=== PATIENT | male | born 1955 | race African-American/Black ===

== ENCOUNTER 2020-09-29 13:53 | Emergency (ER) | payer MEDICAID, MEDICARE ==
[~2020-09-29] VITALS: Ht 172.7 cm; Wt 136.1 kg
[2020-09-29 14:54] VITALS: BP 110/64
[2020-09-29] MEDS ORDERED: KETOROLAC TROMETH 60MG/2ML VIAL IM ONE (15:00)
== END 2020-09-29 16:10 | disposition home or self-care (01) ==
LOC: ER 13:57
DX: G89.29 Other chronic pain (principal); M54.5 Low back pain; M54.16 Radiculopathy, lumbar region; I10 Essential (primary) hypertension; E11.9 Type 2 diabetes mellitus without complications
CPT/HCPCS: 93005; 96372; 99283; J1885